=== PATIENT | female | born 1985 | race Caucasian/White ===

== ENCOUNTER 2020-08-29 03:42 | Inpatient (IN) ==
[2020-08-29] MEDS ORDERED: OXYTOCIN 30 UNITS/500 ML BAG IV PRN ×2 (04:42→09:58)
--- NOTE | 2020-08-29 04:48 | History & Physical Report ---
Date of Service August 29, 2020 Assessment & Plan (1) Previous delivery affecting , antepartum: Patient wishes epidural this is reasonable wishes to attempt this is reasonable I discussed the consent with her including the risks of uterine rupture and repeat section. Patient is actively tyler and does not need Pitocin at this stage she is not sure she would accept Pitocin knowing the increased risks History of Present Illness Primary Care Provider: Linda Rutherford MD 38 weeks prior section presents with ruptured membranes and tyler she discussed in the office wishing to attempt risks have been discussed at that time patient is group B strep negative and is tyler as well she has not had a Covid test yet Allergies Allergy/AdvReac Type Severity Reaction Status Date / Time No Known Allergies Allergy Verified 08/29/20 04:17 Home Medications Home Medications Medication Instructions Recorded Confirmed Type prenat.vits,isidoro,shl-obbi-mswaw 1 tab PO DAILY 08/29/20 08/29/20 History [ Vitamin] Patient History Medical History Abnormal biochemical finding on screening of mother, antepartum Encounter for anatomic survey Hx of migraines Hx of varicella Marginal placenta previa Uterine size date discrepancy, antepartum Surgical History Previous section Family History Mother Breast cancer Aunt Breast cancer Grandmother (Maternal) Breast cancer Father Diabetes Hypertension Coronary heart disease Grandfather (Maternal) Diabetes Denies family history of Ovarian cancer Prostate cancer Myocardial infarction Colorectal cancer Social History Smoking Status: Never smoker Second Hand Exposure: No; Hx Alcohol Use: No Hx Substance Use: No Preferred Language: Kazakh Communication Ability: Effective Visual Impairment: Partially Limited Hearing Ability: Normal Dobby Loom Weaver Required: No Beliefs That Will Affect Care: None marital status: marital status details: Jaciel Mohr ( 30) [phone] Current Living Situation: Spouse and Family Current Living Situation Comment: lives with spouse and daughter, 1 dog 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 That Helps Us Care for You: No Feels Safe at Home: Yes Safety Concerns: Feels Safe At This Time Childhood Exposure to Second-Hand Smoke: No caffeine: Yes (1 cup of tea daily) Dental Care, Regularly: Yes Physical Activity Frequency: 3-4 Times per Week Seatbelt Use: always Sunscreen Use: Yes Assistive Devices: Glasses Physical Exam Constitutional: WD/WN, vitals as above Gastrointestinal (Abdomen): normal bowel sounds, soft, nontender, no hepatosplenomegaly Genitourinary: OB Exam Abdomen: + vertex Manual OB Exam: + cervical dilation 3 cm, + cervical effacement 100% and + station -1 Results & Data ([facility]) Vital Signs (Past 12 Hours) Vital Signs Temp Pulse Resp BP 08/29/20 04:10 98.2 F 93 H 18 120/75 Coding Level of Care Code None Diagnoses Previous delivery affecting , antepartum O34.219
[2020-08-29] MEDS: LACTATED RINGER'S 1,000 ML IV PRN ×2 (04:53→07:04)
[2020-08-29 05:01] LABS: Hematocrit (blood only) 37.2 % (37-47); Hemoglobin 12.5 g/dL (12.0-16.0); Mean Corpuscular Hemoglobin 30.9 pg (25-34); Mean Corpuscular Volume 92.1 fL (80-100); Mean Platelet Volume 10.8 fL (7.4-10.4); Platelet Count 120 K/uL (130-400); RDW Coefficient of Variation 13.7 % (11.5-14.5); RDW Standard Deviation 45.7 fL (36.4-46.3); Red Blood Count 4.04 M/uL (4.2-5.4); White Blood Count 7.98 K/uL (4.8-10.8)
[2020-08-29] MEDS ORDERED: SODIUM CHLORIDE 0.9% INJ 10 ML VIAL ONE (05:04)
[2020-08-29] MEDS ORDERED: ePHEDrine sulfate 50 MG/ML AMP ONE (05:04)
[2020-08-29] MEDS ORDERED: fentaNYL 2MCG/ML ROPIVACAINE 1.25MG/ML 100 ML BAG EPI ONE (05:05)
[2020-08-29] MEDS ORDERED: fentaNYL citrate 100 MCG/2 ML VIAL ONE (05:05)
[2020-08-29] MEDS ORDERED: BUPIVACAINE 0.25% 30 ML VIAL ONE (05:05)
[2020-08-29 05:12] LABS: Mean Corpuscular Hgb Conc 33.6 g/dL (32-36)
[2020-08-29] MEDS ORDERED: ONDANSETRON INJ 2 MG/ML 2 ML VIAL IV PRN (05:24)
[2020-08-29] MEDS ORDERED: NALOXONE HCL 1 MG in SODIUM CHLORIDE 0.9% 1000ML 1,000 ML IV PRN (05:24)
[2020-08-29] MEDS ORDERED: ePHEDrine sulfate 50 MG/ML AMP IV PRN (05:24)
[2020-08-29] MEDS ORDERED: diphenhydrAMINE 50 MG/ML VIAL IV PRN (05:24)
[2020-08-29] MEDS ORDERED: NALOXONE HCL 0.4 MG/1 ML VIAL/CARP IV PRN (05:24)
[2020-08-29] MEDS ORDERED: fentaNYL 2MCG/ML ROPIVACAINE 1.25MG/ML 100 ML BAG EPI PRN (05:24)
--- NOTE | 2020-08-29 05:26 | Anesthesiology Consultation ---
Date of Service August 29, 2020 Assessment & Plan (1) Encounter for pre-operative examination: Chart Review Chart Review: Patient NOT seen in Pre Admission Testing and Acceptable Risk for Labor Epidural Consults Requested none History Height/Weight Height: 5 ft 7 in Weight: 63.503 kg Allergies Allergy/AdvReac Type Severity Reaction Status Date / Time No Known Allergies Allergy Verified 08/29/20 04:17 Medications Home Medications Medication Instructions Recorded Confirmed Last Taken prenat.vits,isidoro,dle-whnz-aayly 1 tab PO DAILY 08/29/20 08/29/20 08/28/20 08:00 [ Vitamin] Active Medications Generic Name Dose Route Start Last Admin Trade Name Freq PRN Reason Stop Dose Admin Lactated Ringer's 1,000 mls @ 125 mls/hr 08/29/20 04:42 08/29/20 05:23 Lr IV 08/31/20 04:41 125 mls/hr .Q8H PRN Infusion L&D Protocol Protocol Past Medical History Medical History Abnormal biochemical finding on screening of mother, antepartum Encounter for anatomic survey Hx of migraines Hx of varicella Marginal placenta previa Uterine size date discrepancy, antepartum Exercise / Class Metabolic Activity II 4-5 Yardwork/Stairs/Walk up hill Past Family History Family History Mother Breast cancer Aunt Breast cancer Grandmother (Maternal) Breast cancer Father Diabetes Hypertension Coronary heart disease Grandfather (Maternal) Diabetes Denies family history of Ovarian cancer Prostate cancer Myocardial infarction Colorectal cancer Past Surgical History Surgical History Previous section Past Anesthesia History No Hx of Anesthesia Complications and No Family Hx of Anesthesia Complications History of PONV No Hx of PONV and No Hx of Motion Sickness Social History Smoking Status: Never smoker Do You Dip or Chew Tobacco: No Hx Alcohol Use: No Hx Substance Use: No substance use type: does not use Physical Exam Vital Signs Last Vital Signs Temp 36.8 C 08/29/20 04:10 Pulse 90 08/29/20 05:50 Resp 18 08/29/20 04:10 BP 129/78 08/29/20 05:50 Pulse Ox 99 08/29/20 05:45 Testing Laboratory Results 08/29/20 04:52
--- NOTE | 2020-08-29 09:38 | Delivery Summary ---
Vaginal Delivery Summary Date of Service August 29, 2020 Vaginal Delivery Summary Findings: Viable female with Apgars of 8 and 9, successful . Baby delivered over a midline second-degree laceration with bilateral second-degree periurethral tears. Placenta delivered spontaneously. Lacerations repaired with 4-0 and 2-0 Vicryl in a routine fashion estimated blood loss 300 cc. Labor course: The patient is a 34-year-old 2 para 1 with an EDC of 06 September, at 38+ weeks gestational age she was admitted in active labor. The patient had been having contractions and then had spontaneous rupture of membranes for clear fluid when she presented to labor and delivery. The patient's first was remarkable for a primary section for breech presentation. The patient had desired a vaginal after s ection trial. The patient's course was unremarkable. Her blood type is A-, antibody negative, she received RhoGam on 20 June. She had negative cell free DNA screening, she had an elevated 1 hour Glucola at 28 weeks with a normal 2-hour glucose tolerance test, and a negative third trimester beta strep culture. Upon admission the patient was 3 cm dilated and tyler regularly tracing was category 2. Anesthesia was consulted and an epidural was placed. Patient progressed to full dilatation began her second stage. Delivering physician and assumed care for the patient at this point. Patient pushed for approximately 90 minutes delivering a viable female with description as above above. Cord gases and cord blood samples were obtained. Inspection of the perineum showed a midline second-degree laceration with bilateral second-degree periurethral lacerations. Lacerations were repaired with 4-0 and 2-0 Vicryl in a routine fashion. Estimated blood loss was 300 cc. Bladder was drained for 500 cc of residual urine. Sponge and needle count was correct. [facility] Vaginal Delivery Charge Vaginal Delivery Codes: 62269 global code for the antepartum, delivery, and post-
[2020-08-29] MEDS ORDERED: ACETAMINOPHEN W/CODEINE #3 1 TAB PO PRN (09:58)
[2020-08-29] MEDS ORDERED: BENZOCAINE 20% AER SPR 82.5 GM CAN EXT PRN (09:58)
[2020-08-29] MEDS ORDERED: SUPERCREAM 0.870% 15 GM JAR EXT PRN (09:58)
[2020-08-29] MEDS ORDERED: HYDROCORTISONE ACETATE 25 MG SUPP PR PRN (09:58)
[2020-08-29] MEDS ORDERED: ACETAMINOPHEN 325 MG TAB PO PRN (09:58)
[2020-08-29] MEDS ORDERED: DIPHTHERIA/TETANUS/PERTUSSIS 0.5 ML SYR/VIAL IM ONE (09:58)
[2020-08-29 10:00] LABS: Base Excess Cord Venous Blood -3.4 mEq/L (-7.7-1.9); Cord Venous Blood HCO3 23 mmol/L (18.4-26.8); Cord Venous Blood PCO2 49 mmHg (30.4-57.2); Cord Venous Blood PO2 24 mmHg (14.1-43.3); O2 Saturation Cord Venous Bld < 60.0 % (<68)
[2020-08-29 10:03] LABS: CO2 Cord Arterial Blood 61 mmHg (39.1-73.5); HCO3 Cord Arterial Blood 25 mmol/L (19.7-28.5); Oxygen Sat Cord Arterial Blood < 60.0 % (<60); PO2 Cord Arterial Blood 22 mmHg (4.1-31.7); pH Cord Arterial Blood 7.23 (7.1-7.38)
--- NOTE | 2020-08-29 13:29 | Anesthesia Procedure Note ---
Date of Service August 29, 2020 Anesthesia Post Epidural Note Vital Signs Vital Signs: Temp Pulse Resp BP Pulse Ox 37.0 C 91 H 20 103/65 98 08/29/20 12:00 08/29/20 11:28 08/29/20 12:00 08/29/20 11:28 08/29/20 09:05 Notes Mental Status: alert / awake / arousable Nausea / Vomiting: adequately controlled Pain: adequately controlled Airway Patency, RR, SpO2: stable & adequate BP & HR: stable & adequate Hydration State: stable & adequate Neuraxial Anesthesia: was administered and sensory block is resolving Anesthetic Complications: no major complications apparent and Pt Satisfied with anesthetic care Epidural: Removed without complications and With tip intact
[2020-08-29] MEDS: IBUPROFEN 600 MG TAB PO PRN ×2 (14:36→21:24)
[2020-08-29] MEDS: DOCUSATE SODIUM 100 MG CAP PO SCH (21:24)
[2020-08-30 06:10] LABS: Hematocrit (blood only) 30.5 % (37-47); Hemoglobin 10.1 g/dL (12.0-16.0); Mean Corpuscular Hemoglobin 30.8 pg (25-34); Mean Corpuscular Hgb Conc 33.1 g/dL (32-36); Mean Platelet Volume 11.2 fL (7.4-10.4); Platelet Count 135 K/uL (130-400); RDW Coefficient of Variation 13.6 % (11.5-14.5); RDW Standard Deviation 46.6 fL (36.4-46.3); Red Blood Count 3.28 M/uL (4.2-5.4); White Blood Count 9.75 K/uL (4.8-10.8)
[2020-08-30] MEDS ORDERED: FERROUS SULFATE 325 MG TAB PO SCH (08:00)
[2020-08-30] MEDS ORDERED: PRENATAL VITAMIN 1 TAB PO SCH (08:00)
--- NOTE | 2020-08-30 08:29 | Obstetrical Progress Note ---
Date of Service August 30, 2020 Assessment & Plan (1) Previous delivery affecting , antepartum: - patient doing well - desires d/c - instructions given - fu in 6 weeks for PP check Subjective Ambulation: ambulating normally Voiding: no voiding problems Diet Tolerance:: regular diet Feeding Type:: breast feeding Physical Exam Constitutional WD/WN, vitals as above Gastrointestinal (Abdomen) Fundus firm below umbilicus Musculoskeletal No deep calf tenderness Results & Data ([facility]) Vital Signs (Past 12 Hours) Vital Signs Temp Pulse Resp BP Pulse Ox 08/30/20 04:10 97.7 F 82 18 111/72 98 08/29/20 23:20 98.1 F 78 16 113/75 97
[2020-08-30] MEDS: DOCUSATE SODIUM 100 MG CAP PO SCH (08:55)
[2020-08-30] MEDS: IBUPROFEN 600 MG TAB PO PRN (08:58)
[2020-08-30] MEDS ORDERED: bisacodyL 5 MG TABEC PO SCH (20:00)
== END 2020-08-30 12:35 | disposition home or self-care (01) | DRG 807 ==
LOC: OPB 03:42 → 4S1 03:44 → 4S2 14:01

== ENCOUNTER 2022-05-06 01:13 | Inpatient (IN) ==
[2022-05-06] MEDS ORDERED: OXYTOCIN 30 UNITS/500 ML BAG IV PRN ×2 (01:30→07:14)
[2022-05-06] MEDS ORDERED: PENICILLIN G POTASSIUM 6 MU in DEXTROSE 5% 250 ML IV STA (01:30)
[2022-05-06] MEDS: LACTATED RINGER'S 1,000 ML IV PRN ×2 (01:39→02:53)
[2022-05-06] MEDS ORDERED: ePHEDrine sulfate 50 MG/ML AMP ONE (01:46)
[2022-05-06] MEDS ORDERED: BUPIVACAINE 0.25% 30 ML VIAL ONE (01:46)
[2022-05-06] MEDS ORDERED: fentaNYL 2MCG/ML ROPIVACAINE 1.25MG/ML 100 ML BAG EPI ONE (01:46)
[2022-05-06] MEDS ORDERED: SODIUM CHLORIDE 0.9% INJ 10 ML VIAL ONE (01:46)
[2022-05-06] MEDS ORDERED: fentaNYL citrate 100 MCG/2 ML VIAL ONE (01:46)
--- NOTE | 2022-05-06 02:55 | Anesthesiology Consultation ---
Date of Service May 06, 2022 Assessment & Plan (1) Encounter for pre-operative examination: Chart Review Chart Review: Acceptable Risk for Surgery and Patient NOT seen in Pre Admission Testing Consults Requested none History Height/Weight Height: 5 ft 7 in Weight: 63.957 kg Allergies Allergy/AdvReac Type Severity Reaction Status Date / Time No Known Allergies Allergy Verified 05/06/22 01:34 Medications Home Medications Medication Instructions Recorded Confirmed Last Taken prenat.vits,isidoro,kqy-dwmt-nuwoe 1 tab PO QAM 08/29/20 05/06/22 05/05/22 Active Medications Generic Name Dose Route Start Last Admin Trade Name Freq PRN Reason Stop Dose Admin Lactated Ringer's 1,000 mls @ 125 mls/hr 05/06/22 01:30 05/06/22 02:54 Lr IV 05/08/22 01:29 0 mls/hr .Q8H PRN Infusion L&D Protocol Protocol Past Medical History Medical History History of 08/29/20 LFC - precip Hx of migraines Hx of varicella Need for rhogam due to Rh negative mother hx Spontaneous 08/05/21 Past Family History Family History Mother Breast cancer Aunt Breast cancer Grandmother (Maternal) Breast cancer Father Diabetes Hypertension Coronary heart disease Grandfather (Maternal) Diabetes Denies family history of Ovarian cancer Prostate cancer Myocardial infarction Colorectal cancer Past Surgical History Surgical History Previous section 11/30/2017 breech Social History Smoking Status: Never smoker Hx Alcohol Use: Yes (not since before ) alcohol intake frequency: holidays/special occasions only Hx Substance Use: No substance use type: does not use Physical Exam Vital Signs Last Vital Signs Temp 97.5 F L 05/06/22 02:49 Pulse 77 05/06/22 02:52 Resp 18 05/06/22 02:49 BP 108/66 05/06/22 02:52 Pulse Ox 100 05/06/22 02:48
[2022-05-06] MEDS ORDERED: diphenhydrAMINE 50 MG/ML VIAL IV PRN (02:56)
[2022-05-06] MEDS ORDERED: NALOXONE HCL 1 MG in SODIUM CHLORIDE 0.9% 1000ML 1,000 ML IV PRN (02:56)
[2022-05-06] MEDS ORDERED: NALOXONE HCL 0.4 MG/1 ML VIAL/CARP IV PRN (02:56)
[2022-05-06] MEDS ORDERED: ePHEDrine sulfate 50 MG/ML AMP IV PRN (02:56)
[2022-05-06] MEDS ORDERED: NALBUPHINE HCL INJ 10 MG/ML AMP IV PRN (02:56)
[2022-05-06] MEDS ORDERED: fentaNYL 2MCG/ML ROPIVACAINE 1.25MG/ML 100 ML BAG EPI PRN (02:56)
[2022-05-06 02:57] LABS: Hematocrit (blood only) 36.2 % (37-47); Hemoglobin 12.1 g/dL (12.0-16.0); Mean Corpuscular Hemoglobin 30.2 pg (25-34); Mean Corpuscular Hgb Conc 33.4 g/dL (32-36); Mean Corpuscular Volume 90.3 fL (80-100); Mean Platelet Volume 11.2 fL (7.4-10.4); Platelet Count 146 K/uL (130-400); RDW Coefficient of Variation 14.1 % (11.5-14.5); RDW Standard Deviation 45.9 fL (36.4-46.3); Red Blood Count 4.01 M/uL (4.2-5.4); White Blood Count 7.18 K/uL (4.8-10.8)
[2022-05-06] MEDS ORDERED: PENICILLIN G POTASSIUM 3 MU in DEXTROSE 5% 100 ML IV PRN (04:30)
[2022-05-06] MEDS ORDERED: BENZOCAINE 20% AER SPR 82.5 GM CAN EXT PRN (07:14)
[2022-05-06] MEDS ORDERED: HYDROCORTISONE ACETATE 25 MG SUPP PR PRN (07:14)
[2022-05-06] MEDS ORDERED: DIPHTHERIA/TETANUS/PERTUSSIS 0.5 ML SYR/VIAL IM ONE (07:14)
[2022-05-06] MEDS ORDERED: ACETAMINOPHEN 325 MG TAB PO PRN (07:14)
--- NOTE | 2022-05-06 07:25 | History & Physical Report ---
Date of Service May 06, 2022 Assessment & Plan (1) Previous section: (2) Elderly multigravida: (3) Need for rhogam due to Rh negative mother: (4) Patient desires vaginal after section (): (5) SROM (spontaneous rupture of membranes): (6) Active labor: Plan: Ga is a 36-year-old currently at 38 weeks 6 days gestational age presents with spontaneous rupture of membranes in active labor. 1. Fetus: Cat 1 2. Labor: Active 3. GBS positive: PCN 4. Desires and is aware of risks associated. consents previously signed History of Present Illness Primary Care Provider: Linda Rutherford MD Ga is a 36-year-old currently at 38 weeks 6 days gestational age presents with spontaneous rupture of membranes in active labor. Patient has history of precipitous labor. Patient also has a prior history of a Caesarean section for breech presentation with her 1st and if successful with her last . Patient has previously signed consent form. complications: AMA Weekly NST's @ 36 weeks Need for Rhogam due to Rh negative mother Rhogam given 02/22/22 SB Prior , last C/S SCHEDULED FOR 05/13/[address] LANDRY Precipitous labor OB Labs: Blood Type A Negative 02/22/22 Antibody Screen NEGATIVE 02/22/22 Hemoglobin 11.7 g/dL (12.0-16.0) L 02/22/22 Hematocrit 34.4 % (37-47) L 02/22/22 Mean Corpuscular Volume 92.2 fL (80-100) 10/14/21 Platelet Count 217 K/uL (130-400) 10/14/21 Rubella IgG Antibody Immune (Immune) 10/14/21 Rapid Plasma Reagin Nonreactive (Nonreactive) 10/14/21 Hepatitis B Surface Antigen Neg (Neg) 10/14/21 HIV (1&2) Ab and P24 Ag, 4th Gener Neg (Neg)B 10/14/21 Glucose 1 Hour 50 gm Load 98 mg/dl (70-130) 02/20/22 Maternal Serum Alpha Fetoprotein 55.5 ng/mL 12/08/21 OB Optional Labs: Chlamydia trachomatis RNA NOT DETECTED (NOT DETECTED) 10/13/21 Neisseria gonorrhoeae RNA NOT DETECTED (NOT DETECTED) 10/13/21 Thyroid Stimulating Hormone (TSH) 1.310 uIu/ml (0.300-4.500) 11/19/20 Alpha Fetoprotein Triple Screen SEE NOTE 12/08/21 Labs Reviewed: declines CF/SMA Normal panorama declines AFP Allergies Allergy/AdvReac Type Severity Reaction Status Date / Time No Known Allergies Allergy Verified 05/06/22 01:34 Home Medications Medication Instructions Recorded Confirmed Type prenat.vits,isidoro,moq-wivx-gykww 1 tab PO QAM 08/29/20 05/06/22 History Patient History Medical History History of 08/29/20 LFC - precip Hx of migraines Hx of varicella Need for rhogam due to Rh negative mother hx Spontaneous 08/05/21 Surgical History Previous section 11/30/2017 breech Family History Mother Breast cancer Aunt Breast cancer Grandmother (Maternal) Breast cancer Father Diabetes Hypertension Coronary heart disease Grandfather (Maternal) Diabetes Denies family history of Ovarian cancer Prostate cancer Myocardial infarction Colorectal cancer Social History (Updated 10/09/21 @ 15:07 by Crystal Mims) Smoking Status: Never smoker Second Hand Exposure: No; Hx Alcohol Use: Yes (not since before ) Hx Substance Use: No Preferred Language: Armenian Communication Ability: Effective Visual Impairment: Partially Limited Hearing Ability: Normal Credit Risk Associate Required: No Beliefs That Will Affect Care: None marital status: marital status details: Jaciel Mohr ( 32) [phone] Current Living Situation: Spouse Current Living Situation Comment: lives with and kids 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 That Helps Us Care for You: No Feels Safe at Home: Yes Safety Concerns: Feels Safe At This Time Childhood Exposure to Second-Hand Smoke: No caffeine: Yes (1 cup of tea daily) Dental Care, Regularly: Yes Physical Activity Frequency: 3-4 Times per Week Seatbelt Use: always Sunscreen Use: Yes Assistive Devices: Glasses Physical Exam Genitourinary: Manual OB Exam: + cervical dilation 7 cm, + cervical effacement 100%, + station 0 and + amniotic fluid clear OB Exam Monitor Tracing: + external FHT monitor used, + external uterine monitor used, + category I and + normal FHT variability; no early decelerations present, no late decelerations present and no variable decelerations exam per nurse Results & Data ([facility]) Vital Signs (Past 12 Hours) Vital Signs Pulse BP 05/06/22 01:32 93 H 127/89 Coding Level of Care Code None Diagnoses Previous section Z98.891 Elderly multigravida O09.529 Need for rhogam due to Rh negative mother Z29.13 Patient desires vaginal after section () O34.219 SROM (spontaneous rupture of membranes) Active labor
--- NOTE | 2022-05-06 08:25 | Anesthesia Procedure Note ---
Date of Service May 06, 2022 Anesthesia Post Epidural Note Vital Signs Vital Signs: Temp Pulse Resp BP Pulse Ox 36.9 C 78 18 113/66 97 05/06/22 05:00 05/06/22 08:23 05/06/22 07:55 05/06/22 08:23 05/06/22 07:03 Notes Mental Status: alert / awake / arousable and participated in evaluation Nausea / Vomiting: adequately controlled Pain: adequately controlled Airway Patency, RR, SpO2: stable & adequate BP & HR: stable & adequate Hydration State: stable & adequate Neuraxial Anesthesia: was administered and sensory block is resolving Anesthetic Complications: no major complications apparent and Pt Satisfied with anesthetic care Epidural: Removed without complications and With tip intact
--- NOTE | 2022-05-06 11:08 | Delivery Summary ---
DATE OF SERVICE: 05/06/2022 PROCEDURE: Vaginal after section with second-degree laceration repair. SURGEON: Casey Matamoros MD. PREOPERATIVE DIAGNOSES: 1. Single intrauterine at 38 weeks 6 days gestational age. 2. Spontaneous rupture of membranes, in active labor. 3. History of section x1. 4. Desiring vaginal after . 5. Advanced maternal age. 6. Group B streptococcus positive. 7. History of precipitous labor. POSTOPERATIVE DIAGNOSES: 1. Single intrauterine at 38 weeks 6 days gestational age. 2. Spontaneous rupture of membranes, in active labor. 3. History of section x1. 4. Desiring vaginal after . 5. Advanced maternal age. 6. Group B streptococcus positive. 7. History of precipitous labor. 8. Status post procedure. ESTIMATED BLOOD LOSS: 300 mL. DRAINS: Straight cath after delivery of placenta. COMPLICATIONS: None. FINDINGS: Viable female infant with weight pending and Apgars of 8 and 9 at one and five minutes res pectively. INDICATIONS: The patient presented in active labor at 7 cm dilated, precipitously progressed in labo r, received an epidural for anesthesia and was able to complete the 2 doses of penicillin prior to de livery for GBS. The patient pushed over 2 contractions to achieve delivery. DESCRIPTION OF PROCEDURE: The patient progressed to 10 cm dilated, 100% effaced, positive 2 station, pushed over intact perineum with epidural anesthesia, delivered a viable female with weight a nd Apgars as noted above. Head of the delivered in ANDRE position, restituted to right transve rse. A single nuchal was noted, which was easily reduced. Body and shoulders quickly followed. Asher olivia was noted to be vigorous soon after delivery and 1 minute delayed cord clamping was initiated. Cord was then double clamped and cut. remained on maternal abdomen. Cord blood was obtained . Attention was then turned to delivery of the placenta, which was delivered intact, 3-vessel cord, gentle cord traction. On inspection of the perineum, vagina, and cervix, there was noted to be a sec ond-degree perineal laceration, which was repaired with 3-0 Vicryl in a traditional crown stitch. Ne edle, sponge, and instrument counts were correct at the completion of the case. Both mother and neon ate stable in the immediate post-delivery period. Job ID: [id number]
[2022-05-06] MEDS: PRENATAL VITAMIN 1 TAB PO SCH (11:43)
[2022-05-06] MEDS: DOCUSATE SODIUM 100 MG CAP PO SCH ×2 (11:43→21:23)
[2022-05-06] MEDS: FERROUS SULFATE 325 MG TAB PO SCH (11:43)
[2022-05-06] MEDS: IBUPROFEN 600 MG TAB PO PRN (17:19)
[2022-05-07] MEDS: IBUPROFEN 600 MG TAB PO PRN (02:52)
[2022-05-07 06:19] LABS: Hemoglobin 9.5 g/dL (12.0-16.0)
--- NOTE | 2022-05-07 07:24 | Obstetrical Progress Note ---
Date of Service May 07, 2022 Assessment & Plan (1) Encounter for care and examination after delivery: Plan: Patient is a 36-year-old now G4, P3 female who delivered via , day 1. complicated by advanced maternal age. -Continue routine care, discharge today, discharge instructions reviewed -A-, antibody negative, rubella immune, GBS positive treated with penicillin -Patient will require RhoGAM prior to discharge as baby was A+ -Encourage breast-feeding and ambulation -Pain controlled today -6-week follow-up with Dr. Matamoros Admission and Anticipated Discharge Date Admission Date: May 06, 2022 Supervising Physician Co-Signing Physician Notes Resident Physician Supervision Note: I was present with Dr. Singh during the history and exam. I discussed the case with the resident and agree with the findings and plan as documented in the note. Any exceptions or clarifications are listed here: PP1 s/p , doing well. VSS, exam benign and wnl. Stable for d/c home today Documented By: Yoon North MD Subjective Patient is a 36-year-old now G4, P3 female who delivered via , day 1. complicated by advanced maternal age. Patient overall doing well today. Patient ambulating and voiding without difficulty. Patient passing gas. Patient able to eat and drink without nausea or vomiting. Lochia moderate and improving. Breast-feeding without difficulty. Pain controlled today. Patient would like to go home later today if able. Patient denies fever, chills, chest pain, shortness of breath, UTI symptoms, or headache. Patient has no other complaints at this time. Review of Systems Review of Systems: All systems reviewed & are unremarkable except as noted in HPI & below Physical Exam Constitutional: WD/WN, vitals as above Eyes: + anicteric sclerae Neck: normal visual inspection Respiratory: normal respiratory effort, lungs clear to auscultation Cardiovascular: RRR, no murmur, no edema Gastrointestinal (Abdomen): normal bowel sounds, soft, nontender, no hepatosplenomegaly Musculoskeletal: Head/Neck/Chest: normocephalic and head atraumatic Skin: no rashes, warm and dry Neurologic: moves all extremities Psychiatric: A+Ox3, euthymic affect Genitourinary: Uterine fundus palpated 2 cm above the umbilicus and displaced laterally to the right, firm. Results & Data ([facility]) Vital Signs (Past 12 Hours) Vital Signs Temp Pulse Resp BP Pulse Ox 05/07/22 04:50 36.6 C 77 16 104/69 99 05/07/22 00:10 36.4 C L 73 18 115/73 99 05/06/22 20:10 36.6 C 72 16 112/69 100
[2022-05-07] MEDS: DOCUSATE SODIUM 100 MG CAP PO SCH (07:50)
[2022-05-07] MEDS: PRENATAL VITAMIN 1 TAB PO SCH (07:50)
[2022-05-07] MEDS: FERROUS SULFATE 325 MG TAB PO SCH (07:50)
[2022-05-07] MEDS ORDERED: bisacodyL 5 MG TABEC PO SCH (20:00)
[2022-05-08] MEDS ORDERED: bisacodyL 10 MG SUPP PR PRN (07:00)
== END 2022-05-07 10:35 | disposition home or self-care (01) | DRG 807 ==
LOC: OPB 01:13 → 4S1 01:15 → 4E2 09:25
DX: O42.92 Full-term premature rupture of membranes, unspecified as to length of time between rupture and onset of labor; O70.1 Second degree perineal laceration during delivery; O99.824 Streptococcus B carrier state complicating childbirth; Z67.11 Type A blood, Rh negative; Z37.0 Single live birth; Z3A.38 38 weeks gestation of pregnancy; O69.81X0 Labor and delivery complicated by cord around neck, without compression, not applicable or unspecified; O34.211 Maternal care for low transverse scar from previous cesarean delivery; O26.893 Other specified pregnancy related conditions, third trimester